=== PATIENT | female | born 1965 | race African-American/Black ===

== ENCOUNTER → 2021-12-24 | Emergency (ER) | payer BC, SELFPAY | LOC: EDBD 09:38 → NAV ERS 09:38 | DX: K04.7 Periapical abscess without sinus (principal); F17.210 Nicotine dependence, cigarettes, uncomplicated | CPT/HCPCS: 99282 ==

== ENCOUNTER 2022-06-04 09:07 | Emergency (ER) | payer BC, OTHER ==
[2022-06-04] MEDS ORDERED: Benzonatate 100 MG CAP ONE (11:45)
[2022-06-04] MEDS ORDERED: methylPREDNISolone Acetate 40 mg/ml Vial ONE (11:45)
== END 2022-06-04 11:59 | disposition home or self-care (01) ==
LOC: NAV ERS 09:07
DX: J20.8 Acute bronchitis due to other specified organisms (principal); I10 Essential (primary) hypertension; F17.210 Nicotine dependence, cigarettes, uncomplicated; Z20.822 Contact with and (suspected) exposure to COVID-19
CPT/HCPCS: 87804; 96372; 99283; J1030; U0003; U0005

== ENCOUNTER 2023-09-16 10:55 | Emergency (ER) | payer MEDICARE, OTHER ==
[2023-09-16 12:10] LABS: SARS-CoV-2 E Target Negative; SARS-CoV-2 N2 Target Negative; SARS-CoV-2 NAA Rapid Test Not Detected (NotDetected); SARS-CoV-2 RdRP gene Negative
== END 2023-09-16 12:26 | disposition home or self-care (01) ==
LOC: NAV ERS 10:55
DX: B34.9 Viral infection, unspecified (principal); F17.210 Nicotine dependence, cigarettes, uncomplicated
CPT/HCPCS: 99283; U0002

== ENCOUNTER 2024-02-01 15:32 | Emergency (ER) | payer MEDICARE, OTHER, SELFPAY ==
[2024-02-01] MEDS ORDERED: Benzonatate 100 MG CAP ONE (16:05)
[2024-02-01] MEDS ORDERED: Ibuprofen 800 MG TAB ONE (16:05)
[2024-02-01] MEDS ORDERED: Acetaminophen 500 MG TAB ONE (16:41)
== END 2024-02-01 17:50 | disposition home or self-care (01) ==
LOC: NAV ERS 15:32
DX: J06.9 Acute upper respiratory infection, unspecified (principal); F17.210 Nicotine dependence, cigarettes, uncomplicated
CPT/HCPCS: 71046; 87428

== ENCOUNTER 2024-10-23 08:15 | Emergency (ER) | payer MEDICARE, OTHER ==
[2024-10-23] MEDS ORDERED: Naproxen 500 MG TAB ONE (09:16)
[2024-10-23] MEDS ORDERED: Cyclobenzaprine 10 MG TAB ONE (09:16)
== END 2024-10-23 10:20 | disposition home or self-care (01) ==
LOC: NAV ERS 08:15
DX: S16.1XXA Strain of muscle, fascia and tendon at neck level, initial encounter (principal); S00.93XA Contusion of unspecified part of head, initial encounter; S70.11XA Contusion of right thigh, initial encounter; J44.9 Chronic obstructive pulmonary disease, unspecified; F17.210 Nicotine dependence, cigarettes, uncomplicated; V89.2XXA Person injured in unspecified motor-vehicle accident, traffic, initial encounter
CPT/HCPCS: 70450; 71045; 72125; 72170

== ENCOUNTER 2024-12-17 08:39 | Outpatient (CLI) | payer MEDICARE, OTHER | END 2024-12-17 08:40 | disposition home or self-care (01) | LOC: NAV RAD 08:39 | PROVIDERS: ATTEND Nurse Practitioner Family | DX: J18.9 Pneumonia, unspecified organism (principal) | CPT/HCPCS: 71046 ==